=== PATIENT | female | born 1975 ===

== ENCOUNTER 2018-11-02 08:36 | Day surgery (SDC) | payer BC ==
[2018-11-02] MEDS ORDERED: FENTAnyl 50 MCG/ML VIAL (09:12)
[2018-11-02] MEDS: BUPIVACAINE 0.5% (SDV) 30 ML INJ (09:35)
[2018-11-02] MEDS: LIDOCAINE 2% (MDV) 20 ML INJ (09:36)
[2018-11-02] MEDS ORDERED: CEFAZOLIN 1 GM INJ (09:46)
[2018-11-02] MEDS ORDERED: PROPOFOL 100 ML (09:46)
[2018-11-02] MEDS ORDERED: KETOROLAC 30 MG INJ IV (10:00)
[2018-11-02] MEDS ORDERED: ONDANSETRON 4 MG INJ IV (10:00)
[2018-11-02] MEDS ORDERED: hydrALAzine 20 MG INJ IV (10:00)
[2018-11-02] MEDS ORDERED: LABETALOL HCL 20MG INJ IV (10:00)
[2018-11-02] MEDS ORDERED: ALBUTEROL 0.083% (NEB) 2.5 MG/3 ML AMP HHN (10:00)
[2018-11-02] MEDS ORDERED: EPHEDrine SULFATE 50 MG/5 ML SYG IV (10:00)
[2018-11-02] MEDS ORDERED: FENTAnyl 50 MCG/ML VIAL IV ×3 (10:00)
[2018-11-02] MEDS ORDERED: MEPERIDINE 25 MG INJ IV (10:00)
[2018-11-02] MEDS ORDERED: METOCLOPRAMIDE 10 MG INJ IV (10:00)
[2018-11-02] MEDS ORDERED: DIPHENHYDRAMINE 50 MG INJ IV (10:00)
[2018-11-02] MEDS ORDERED: OXYCODONE/ACETAMINOPHEN (5/325) TAB PO ×2 (10:00)
== END 2018-11-02 11:02 | disposition home or self-care (01) ==
LOC: SDS 08:36
DX: I83.891 Varicose veins of right lower extremity with other complications (principal); E03.9 Hypothyroidism, unspecified; E66.9 Obesity, unspecified; Z68.30 Body mass index [BMI] 30.0-30.9, adult
CPT/HCPCS: 28039; 88307